=== PATIENT | female | born 2000 | race Hispanic/Latino ===

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

== ENCOUNTER 2019-09-04 16:48 | Emergency (ER) | payer MEDICAID, OTHER | END 2019-09-04 18:13 | disposition home or self-care (01) | LOC: EDH 16:48 | DX: J10.1 Influenza due to other identified influenza virus with other respiratory manifestations (principal) | CPT/HCPCS: 87804 ==

== ENCOUNTER 2020-07-11 08:28 | Observation (INO) | payer MEDICAID ==
[~2020-07-11] VITALS: Ht 157.5 cm; Wt 61.2 kg
[2020-07-11 09:27] LABS: AMPHET/METH SCREEN,URINE NEGATIVE (NEGATIVE); BARBITURATE SCREEN, URINE NEGATIVE (NEGATIVE); BENZODIAZEPINES SCREEN,URINE NEGATIVE (NEGATIVE); CANNABINOID SCREEN,URINE NEGATIVE (NEGATIVE); COCAINE SCREEN,URINE NEGATIVE (NEGATIVE); OPIATE SCREEN,URINE NEGATIVE (NEGATIVE); PHENCYCLIDINE SCREEN,URINE NEGATIVE (NEGATIVE)
[2020-07-11 10:01] LABS: APPEARANCE,URINE Clear (CLEAR); BILIRUBIN,URINE Negative (NEGATIVE); COLOR,URINE Yellow (YELLOW); GLUCOSE, URINE (UA) Negative (NEGATIVE); KETONES,URINE Negative (NEGATIVE); LEUKOCYTE ESTERASE ,URINE Small (NEGATIVE); NITRATE,URINE Positive (NEGATIVE); OCCULT BLOOD,URINE Negative (NEGATIVE); PH,URINE 7.5 (5.0-8.0); PROTEIN,URINE Negative (NEGATIVE); UROBILINOGEN,URINE 0.2 mg/dL (0.2-1.0)
[2020-07-11 10:19] LABS: BACTERIA,URINE Many /HPF (None Seen); RBC,URINE None Seen /HPF (0-1); TRANSITIONAL EPI CELLS,URINE Few /HPF (None Seen)
[2020-07-11] MEDS ORDERED: CEFTRIAXONE SODIUM 1 GM IV SCH (13:00)
[2020-07-11] MEDS ORDERED: LACTATED RINGERS 1000ML IV ONE (13:00)
[2020-07-11] MEDS ORDERED: LACTATED RINGERS 1000ML 1,000 ML IV ONE (13:02)
== END 2020-07-11 14:07 | disposition home or self-care (01) ==
LOC: EDH 08:28 → LDH 08:29
PROVIDERS: ADMIT Specialist; ATTEND Specialist
DX: O26.892 Other specified pregnancy related conditions, second trimester (principal); N89.8 Other specified noninflammatory disorders of vagina; Z3A.23 23 weeks gestation of pregnancy
CPT/HCPCS: 76805; 80305; 81001; 87077; 87088; 87186; 96361; 96374; 99284; G0378 ×6; J0696; J7120; 96360; 96372

== ENCOUNTER 2020-10-20 02:30 | Observation (INO) | payer MEDICAID ==
[~2020-10-20] VITALS: Ht 157.5 cm; Wt 70.8 kg
[2020-10-20] MEDS ORDERED: LACTATED RINGERS 1000ML 1,000 ML IV SCH (02:45)
[2020-10-20 03:00] LABS: APPEARANCE,URINE Clear (CLEAR); BILIRUBIN,URINE Negative (NEGATIVE); COLOR,URINE Yellow (YELLOW); GLUCOSE, URINE (UA) Negative (NEGATIVE); KETONES,URINE Negative (NEGATIVE); LEUKOCYTE ESTERASE ,URINE Negative (NEGATIVE); NITRATE,URINE Negative (NEGATIVE); OCCULT BLOOD,URINE Negative (NEGATIVE); PH,URINE 6.5 (5.0-8.0); PROTEIN,URINE Negative (NEGATIVE); UROBILINOGEN,URINE 0.2 mg/dL (0.2-1.0)
[2020-10-20 03:10] LABS: AMPHET/METH SCREEN,URINE NEGATIVE (NEGATIVE); BARBITURATE SCREEN, URINE NEGATIVE (NEGATIVE); BENZODIAZEPINES SCREEN,URINE NEGATIVE (NEGATIVE); CANNABINOID SCREEN,URINE NEGATIVE (NEGATIVE); COCAINE SCREEN,URINE NEGATIVE (NEGATIVE); OPIATE SCREEN,URINE NEGATIVE (NEGATIVE); PHENCYCLIDINE SCREEN,URINE NEGATIVE (NEGATIVE)
== END 2020-10-20 03:50 | disposition home or self-care (01) ==
LOC: EDH 02:30 → LDH 02:31
PROVIDERS: ADMIT Obstetrics & Gynecology; ATTEND Obstetrics & Gynecology
DX: O62.9 Abnormality of forces of labor, unspecified (principal); Z3A.37 37 weeks gestation of pregnancy
CPT/HCPCS: 59025; 80305; 81003; 99284; G0378

== ENCOUNTER 2020-10-20 07:37 | Inpatient (IN) | payer MEDICAID ==
[~2020-10-20] VITALS: Ht 157.5 cm; Wt 70.3 kg
[2020-10-20 08:13] LABS: HEMATOCRIT 33.5 % (36-48); MEAN CORPUSCULAR HGB CONC 33.7 g/dL (32.0-36.0); MEAN CORPUSCULAR VOLUME 86.1 fL (80-100); RED BLOOD CELL COUNT(AUTO) 3.89 MIL/uL (4.00-5.50); WHITE BLOOD COUNT (AUTO) 11.6 K/uL (4.8-10.8)
[2020-10-20] MEDS ORDERED: AMPICILLIN 1GM+NS 50ML 50 ML IV SCH (08:15)
[2020-10-20] MEDS ORDERED: PROMETHAZINE HCL 25 MG/ML 1ML AMPULE IM PRN (08:15)
[2020-10-20] MEDS ORDERED: LACTATED RINGERS 1000ML 1,000 ML IV PRN (08:15)
[2020-10-20] MEDS ORDERED: AMPICILLIN 2GM+NS 100ML 100 ML IV SCH (08:15)
[2020-10-20] MEDS ORDERED: MEPERIDINE-PF 50 MG/ML SYG IVP SCH (08:15)
[2020-10-20] MEDS ORDERED: OXYTOCIN-LR 20 UNITS/1000 ML 1,000 ML IV SCH (08:15)
[2020-10-20] MEDS ORDERED: MEPERIDINE-PF 50 MG/ML SYG ONE (09:01)
[2020-10-20] MEDS ORDERED: LIDOCAINE HCL 400MG/20ML VIAL ONE (10:41)
[2020-10-20] MEDS: OXYTOCIN-LR 20 UNITS/1000 ML 1,000 ML IV SCH ×2 (10:46→12:00)
[2020-10-20] MEDS ORDERED: MEASLES/MUMPS/RUBELLA VACCINE, LIVE 0.5 ML/VIAL SQ PRN (11:00)
[2020-10-20] MEDS ORDERED: LANOLIN 30GM OINTMENT TP PRN (11:00)
[2020-10-20] MEDS ORDERED: ACETAMINOPHEN 325 MG TAB PO PRN (11:00)
[2020-10-20] MEDS ORDERED: DIPH,PERTUSS(ACELL),TET VAC/PF 0.5 ML VIAL IM PRN (11:00)
[2020-10-20] MEDS ORDERED: BENZOCAINE/LANOLIN/ALOE VERA 60 ML AEROSOL TP PRN (11:00)
[2020-10-20] MEDS ORDERED: WITCH HAZEL 1 PAD TP PRN (11:00)
[2020-10-20] MEDS ORDERED: ACETAMINOPHEN WITH CODEINE 1 TAB TAB PO PRN (11:00)
[2020-10-20] MEDS: IBUPROFEN 600 MG TABLET PO PRN (12:00)
[2020-10-20 13:30] VITALS: BP 130/75
[2020-10-20 16:13] VITALS: BP 118/64
[2020-10-20 20:00] VITALS: BP 112/65
[2020-10-20] MEDS: DOCUSATE SODIUM 100 MG CAP PO SCH (21:53)
[2020-10-21 00:21] VITALS: BP 111/54
[2020-10-21 04:20] VITALS: BP 112/52
[2020-10-21 07:23] VITALS: BP 111/55
[2020-10-21] MEDS: IBUPROFEN 600 MG TABLET PO PRN (09:49)
[2020-10-21] MEDS: DOCUSATE SODIUM 100 MG CAP PO SCH (09:49)
[2020-10-21 11:12] LABS: HEPATITIS Bs ANTIGEN SCREEN P Negative (Negative)
[2020-10-21 11:22] VITALS: BP 120/59
== END 2020-10-21 11:35 | disposition home or self-care (01) | DRG 560 ==
LOC: EDH 07:37 → LDH 07:38 → OBSVTOIN 07:38 → WSH 13:24
PROVIDERS: ADMIT Obstetrics & Gynecology; ATTEND Obstetrics & Gynecology
PROC: 10E0XZZ Delivery of Products of Conception, External Approach (ICD-10-PCS; principal; 2020-10-20)
PROC: 10907ZC Drainage of Amniotic Fluid, Therapeutic from Products of Conception, Via Natural or Artificial Opening (ICD-10-PCS; 2020-10-20)
PROC: 0W8NXZZ Division of Female Perineum, External Approach (ICD-10-PCS; 2020-10-20)
PROC: 3E0234Z Introduction of Serum, Toxoid and Vaccine into Muscle, Percutaneous Approach (ICD-10-PCS; 2020-10-20)
PROC: 3E0134Z Introduction of Serum, Toxoid and Vaccine into Subcutaneous Tissue, Percutaneous Approach (ICD-10-PCS; 2020-10-20)
DX: O80 Encounter for full-term uncomplicated delivery (principal); Z3A.37 37 weeks gestation of pregnancy; Z37.0 Single live birth; Z23 Encounter for immunization
CPT/HCPCS: 36415; 59025; 80305; 81003; 85027; 86592; 86850; 86900; 86901; 87340; A4351; A4606; G0378; J2175; J2590; J3490; J7120

== ENCOUNTER 2021-08-19 13:51 | Inpatient (IN) | payer MEDICAID ==
[~2021-08-19] VITALS: Ht 157.5 cm; Wt 73.0 kg
[2021-08-19] MEDS ORDERED: OXYTOCIN-LR 20 UNITS/1000 ML 1,000 ML IV SCH ×2 (15:00→17:30)
[2021-08-19] MEDS ORDERED: LACTATED RINGERS 1000ML 1,000 ML IV PRN (15:00)
[2021-08-19] MEDS ORDERED: ROPIVACAINE 0.2% 100ML VIAL 100 ML EP SCH (15:00)
[2021-08-19] MEDS ORDERED: PROMETHAZINE HCL 25 MG/ML 1ML AMPULE IM PRN (15:00)
[2021-08-19] MEDS ORDERED: LACTATED RINGERS 500 ML 500 ML IV PRN (15:00)
[2021-08-19] MEDS ORDERED: EPHEDRINE SULFATE 50 MG/ML AMPULE IVP PRN (15:00)
[2021-08-19] MEDS ORDERED: NALOXONE HCL 0.4 MG/1 ML ML IV PRN (15:00)
[2021-08-19] MEDS ORDERED: MEPERIDINE-PF 50 MG/ML SYG IVP PRN (15:00)
[2021-08-19 15:02] LABS: HEMATOCRIT 31.3 % (36-48); MEAN CORPUSCULAR HEMOGLOBIN 25.4 pg (27.0-33.0); MEAN CORPUSCULAR HGB CONC 31.6 g/dL (32.0-36.0); MEAN CORPUSCULAR VOLUME 80.3 fL (80-100); RED BLOOD CELL COUNT(AUTO) 3.9 MIL/uL (4.00-5.50); RED CELL DISTRIBUTION WIDTH 15.3 % (11.0-15.5); WHITE BLOOD COUNT (AUTO) 11.7 K/uL (4.8-10.8)
[2021-08-19 15:07] VITALS: BP 128/73
[2021-08-19 15:07] LABS: APPEARANCE,URINE CLEAR (CLEAR); BILIRUBIN,URINE NEGATIVE (NEGATIVE); COLOR,URINE YELLOW (YELLOW); GLUCOSE, URINE (UA) NEGATIVE (NEGATIVE); KETONES,URINE 15 mg/dL (NEGATIVE); LEUKOCYTE ESTERASE ,URINE TRACE (NEGATIVE); NITRATE,URINE NEGATIVE (NEGATIVE); OCCULT BLOOD,URINE SMALL (NEGATIVE); PROTEIN,URINE NEGATIVE (NEGATIVE); UROBILINOGEN,URINE 0.2 mg/dL (0.2-1.0)
[2021-08-19 15:24] LABS: BACTERIA,URINE Few /HPF (None Seen)
[2021-08-19 15:25] LABS: SQUAMOUS EPITHELIAL CELL,UR Moderate /HPF (0-2)
[2021-08-19 15:56] LABS: RAPID PLASMA REAGIN NONREACTIVE (NONREACTIVE)
[2021-08-19] MEDS ORDERED: LIDOCAINE HCL 1% 20 ML VIAL ONE (16:52)
[2021-08-19] MEDS ORDERED: DIPH,PERTUSS(ACELL),TET VAC/PF 0.5 ML VIAL IM PRN (17:30)
[2021-08-19] MEDS ORDERED: IBUPROFEN 600 MG TABLET PO PRN (17:30)
[2021-08-19] MEDS ORDERED: ACETAMINOPHEN WITH CODEINE 1 TAB TAB PO PRN (17:30)
[2021-08-19] MEDS ORDERED: LANOLIN 30GM OINTMENT TP PRN (17:30)
[2021-08-19] MEDS ORDERED: WITCH HAZEL 1 PAD TP PRN (17:30)
[2021-08-19] MEDS ORDERED: MEASLES/MUMPS/RUBELLA VACCINE, LIVE 0.5 ML/VIAL SQ PRN (17:30)
[2021-08-19] MEDS ORDERED: ACETAMINOPHEN 325 MG TAB PO PRN (17:30)
[2021-08-19] MEDS ORDERED: BENZOCAINE/LANOLIN/ALOE VERA 60 ML AEROSOL TP PRN (17:30)
[2021-08-19 19:44] VITALS: BP 111/70
[2021-08-19] MEDS ORDERED: FLU VACC QS2021-22(6MOS UP)/PF 60 MCG/0.5 ML ML IM ONE (21:00)
[2021-08-19] MEDS: DOCUSATE SODIUM 100 MG CAP PO SCH (21:04)
[2021-08-19 23:37] VITALS: BP 91/41
[2021-08-20 03:43] VITALS: BP 100/44
[2021-08-20 07:35] VITALS: BP 104/67
[2021-08-20] MEDS: DOCUSATE SODIUM 100 MG CAP PO SCH (08:33)
[2021-08-20 09:09] LABS: HEPATITIS Bs ANTIGEN SCREEN P Negative (Negative)
[2021-08-20 11:45] VITALS: BP 119/74
[2021-08-20] MEDS ORDERED: DOCU-116 PO (13:44)
[2021-08-20] MEDS ORDERED: IBUP-2077 PO (13:45)
== END 2021-08-20 17:10 | disposition home or self-care (01) | DRG 560 ==
LOC: EDH 13:51 → LDH 13:52 → OBSVTOIN 13:52 → WSH 19:32
PROVIDERS: ADMIT Obstetrics & Gynecology; ATTEND Obstetrics & Gynecology
PROC: 10E0XZZ Delivery of Products of Conception, External Approach (ICD-10-PCS; principal; 2021-08-19)
PROC: 0HQ9XZZ Repair Perineum Skin, External Approach (ICD-10-PCS; 2021-08-19)
PROC: 10907ZC Drainage of Amniotic Fluid, Therapeutic from Products of Conception, Via Natural or Artificial Opening (ICD-10-PCS; 2021-08-19)
PROC: 3E02340 Introduction of Influenza Vaccine into Muscle, Percutaneous Approach (ICD-10-PCS; 2021-08-19)
DX: O70.0 First degree perineal laceration during delivery (principal); Z23 Encounter for immunization; Z37.0 Single live birth; Z3A.38 38 weeks gestation of pregnancy
CPT/HCPCS: 36415; 81001; 85027; 86592; 86701; 86850; 86900; 86901; 87340; 87390; A4351; G0008; G0378; J2175; J2550; J2590; Q2035